=== PATIENT | female | born 1975 | race Caucasian/White ===

== ENCOUNTER 2016-05-17 17:37 | Emergency (ER) | payer BC ==
[~2016-05-17] VITALS: Ht 175.3 cm; Wt 59.0 kg
[~2016-05-17 17:37] MED LIST: CARV3.12 PO; LORA-441 PO
[2016-05-17 17:44] VITALS: Ht 175.3 cm; Wt 59.0 kg
[2016-05-17] MEDS ORDERED: METO-448 PO (17:58)
[2016-05-17 18:04] VITALS: BP 112/78; PULSE 78; RESP 18; TEMP 98.6
--- NOTE | 2016-05-17 18:08 | ERD ---
ER Documentation Chief Complaint Date/Time DATE: 05/17/16 TIME: 18:08 Chief Complaint intermittent palpitations x 1 month worsening today HPI Patient is a 41-year-old female with palpitations who presents with palpitations. The patient was brought in by ambulance. She said that she has had palpitations for the last 1.5 years. She started with palpitations today just prior to arrival which stopped on their own. She takes metoprolol. She denies alcohol or caffeine. Upon review of old medical records this is the patient's 13 visit to the ER since 2010. Her primary doctor is Dr. Mock and she does have a beef pusher that she sees as well and she is awaiting results of a cardiac catheterization technician. ROS All systems reviewed and are negative except as per history of present illness. Medications Home Meds Active Scripts Lorazepam* (Ativan*) 0.5 Mg Tablet, 0.5 MG PO BID Y for ANXIETY, #10 TAB Prov:ANDRIY GAMEZ 06/10/15 Reported Medications Metoprolol Tartrate* (Lopressor*) 25 Mg Tab, 25 MG PO BID, #60 TAB 05/17/16 Discontinued Reported Medications Carvedilol* (Coreg*) 3.125 Mg Tablet, 3.125 MG PO BID, #60 TAB 05/31/15 Allergies Allergies: Coded Allergies: No Known Allergy (Unverified , 05/17/16) PMhx/Soc History of Surgery: Yes (caesarian section) Anesthesia Reaction: No Hx Neurological Disorder: No Hx Respiratory Disorders: No Hx Cardiac Disorders: No (tachycardia) Hx Psychiatric Problems: Yes (ANXIETY ) Hx Miscellaneous Medical Probl: No Hx Alcohol Use: Yes (socially) Hx Substance Use: No Hx Tobacco Use: No Smoking Status: Never smoker FmHx Negative for Brugada syndrome or Apgvf-Ewfxutpcx-Dewpe Family History: No diabetes Physical Exam Vitals Vital Signs Date Time Temp Pulse Resp B/P Pulse Ox O2 Delivery O2 Flow Rate FiO2 05/17/16 18:04 98.6 78 18 112/78 99 Room Air 05/17/16 17:44 98.6 75 18 112/78 99 Physical Exam Const: Anxious Head: Atraumatic Eyes: Normal Conjunctiva ENT: Normal External Ears, Nose and Mouth. Neck: Full range of motion..~ No meningismus. Resp: Clear to auscultation bilaterally Cardio: Regular rate and rhythm, no murmurs Abd: Soft, non tender, non distended. Normal bowel sounds Skin: No petechiae or rashes Back: No midline or flank tenderness Ext: No cyanosis, or edema Neur: Awake and alert Psych: Normal Mood and Affect Procedures/MDM EKG read by me: Rate/Rhythm: Regular rate and rhythm at a rate of 93 Intervals: Normal Impression: No evidence of ischemia or arrhythmia Patient is a 41-year-old female who presents with palpitations. Her EKG here is normal and EKG done by paramedics showed a sinus tachycardia but no arrhythmia. At this point I believe outpatient management is appropriate. She is already taking metoprolol. She is already being followed by a beef pusher. I will do not feel that she requires further workup or admission to the hospital at this time. The patient can return for any worsening symptoms. She should follow-up with her beef pusher and primary doctor for results of her recent cardiac catheterization technician testing. At this point I doubt Brugada syndrome, with Parkinson White, ventricular tachycardia, or ventricular fibrillation. Departure Diagnosis: Primary Impression: Palpitations Condition: Fair Patient Instructions: Palpitations Referrals: UCHE MOCK MD (PCP) Additional Instructions: SPECIALIST: YOU HAVE A MEDICAL CONDITION WHICH REQUIRES YOU TO SEE A SPECIALIST WITHIN THE NEXT 1-2 DAYS. PLEASE FOLLOW UP WITH YOUR PRIMARY PHYSICIAN FOR REFFERAL.IF YOU DO NOT HAVE A PRIMARY CARE PHYSICIAN AND/OR YOU CAN NOT AFFORD TO SEE A PHYSICIAN THE FOLLOWING RESOURCES HAVE BEEN SUPPLIED TO YOU. IT IS YOUR RESPONSIBILITY TO BE SEEN BY THE SPECIALIST KELLEY FERGUSON MD May 17, 2016 18:08
== END 2016-05-17 18:31 | disposition home or self-care (01) ==
LOC: E/R 17:37
DX: R00.2 Palpitations (principal)
CPT/HCPCS: 93005

== ENCOUNTER 2017-08-01 11:31 | Emergency (ER) | END 2017-08-01 13:48 | disposition home or self-care (01) ==